=== PATIENT | male | born 1995 | race Caucasian/White ===

== ENCOUNTER 2022-02-08 15:10 | Emergency (ER) | payer OTHER, SELFPAY ==
[2022-02-08 15:11] VITALS: BP 151/80; PULSE 88; RESP 14; TEMP 36.3; O2SAT 98; BMI 29.9
--- NOTE | 2022-02-08 15:31 | EDS_ITS ---
HPI History of Present Illness Chief Complaint: Male Pain/Injury Informant: patient Pain Onset: Days (3) Context: Gradual Onset Timing: Waxes and wanes Worsened by: Movement, walking Relieved by: Rest Narrative Narrative: Patient presents with right testicular pain that has been getting worse over the past 3 days. Patient states it waxes and wanes. Patient states it is worse with walking. Patient states it is better with rest. Patient describes the pain as stabbing. Patient states the pain is localized to the right testicle. Patient denies any left testicular pain. Patient denies any inguinal pain. Patient admits to some nausea but denies any vomiting. Patient denies any diarrhea, melena, or hematochezia. Patient denies any dysuria or hematuria. PFSH PFSH Medical History no medical history no medical history Allergy/AdvReac Type Severity Reaction Status Date / Time Penicillins Allergy PT UNSURE Verified 02/08/22 15:13 OF REACTION Surgical History (Updated 02/08/22 @ 15:[address] Dk Hill DO) Hx of vasectomy Social History Smoking Status: Never smoker ROS ROS ED Constitutional Constitutional ED: Denies chills or fever(s) Eyes Eyes: Denies blurry vision or change in vision ENT ENT ED: Denies rhinorrhea or sore throat Cardiovascular Cardiovascular: Denies chest pain or palpitations Respiratory/Chest Respiratory/Chest: Denies cough or dyspnea Gastrointestinal Gastrointestinal: Reports nausea; Denies vomiting Genitourinary Genitourinary ED: Denies dysuria or hematuria Musculoskeletal Musculoskeletal: Denies back pain or neck pain Integumentary Denies abscess or rash Neurologic Neurologic: Denies headache(s) or weakness Allergic/Immunologic Allergic/Immunologic ED: Denies mouth swelling or urticaria EXAM Physical Exam Const Vital Signs: 02/08/22 15:11 Temperature 97.3 F L Temperature Source Temporal Pulse Rate 88 Respiratory Rate 14 Blood Pressure 151/80 H Blood Pressure Mean 103 Pulse Ox 98 Oxygen Delivery Method Room Air Positive well nourished and well developed General Appearance ED: well developed and NAD HEENT Reports moist mucous membranes Neck supple and no JVD Resp normal respiratory effort and clear to auscultation bilaterally Cardio regular rate and regular rhythm GI non-tender and non-distended Auscultation: normoactive bowel sounds Palpation: soft Penis: normal penis Scrotum: testes descended bilaterally and cremasteric reflex present; Negative for scrotal swelling Testes: testicular lie normal and testicular tenderness right; Negative for blue dot sign Extremity normal to inspection Neuro oriented x3, CN's II-XII intact bilaterally, moves all extremities, no focal motor deficits and no sensory deficits noted Sensorium / Orientation: alert Psych mental status grossly normal MDM MDM MDM Narrative Medical decision making narrative: Urinalysis does not show any evidence of urinary tract infection or hematuria. Ultrasound of the testicles was obtained. There is no evidence of torsion or epididymitis. Patient was advised of his findings. Patient was instructed to take Tylenol or ibuprofen as needed for pain. Patient was instructed to follow-up with his primary care physician in 5 to 7 days. Patient understood and was agreeable with the plan. All questions were answered. Lab Data Attestation: I reviewed the patient's lab results. Labs: Laboratory Results - last 24 hr 02/08/22 15:39 Urine Color Yellow Urine Clarity Clear Urine pH 6.5 Ur Specific [place] 1.010 Urine Protein Negative Urine Glucose (UA) Normal Urine Ketones Negative Urine Occult Blood Negative Urine Nitrite Negative Urine Bilirubin Negative Urine Urobilinogen Normal Ur Leukocyte Esterase Negative Urine RBC 0 SEEN Urine WBC 0 SEEN Ur Squamous Epith Cells 0 SEEN Urine Bacteria 0 SEEN Urine Mucus 0 SEEN Radiography Diagnostic Testing: Clinical Impression(s) from Imaging Studies Testicular Ultrasound 02/08/22 15:37 IMPRESSION: 1. Normal-appearing testicles without evidence for orchitis or torsion. 2. No testicular cystic or solid mass lesions. 3. Normal epididymal head bilaterally. 4. Small bilateral varicoceles. 5. Small left hydrocele. Electronically Signed: Filipe Angel MD at 18:36 EDT , Discharge Plan Triage Chief Complaint: Male Pain/Injury ED Provider: Dk Hill Dx/Rx/DC Orders Clinical Impression: Right testicular pain Instructions: ED Testicular Pain, Unclear Cause Primary Care Provider: Brooks Benz Referrals: Brooks Benz DO [Primary Care Provider] - 3-5 Days Disposition Disposition: Home, Self Care
--- NOTE | 2022-02-08 15:37 | US_ITS ---
STUDY: SCROTUM/TESTICULAR ULTRASOUND EXAMINATION OF 1640 HOURS ON 02/08/2022 REASON FOR EXAM: 26-year-old male with right testicular pain for 3 days duration. TECHNIQUE: Ultrasound evaluation of the scrotum was performed with color Doppler and static bajwa-scale imaging. COMPARISON: None. FINDINGS: Right testicle measures 4.7 cm x 3.2 cm x 2.8 cm, and is homogeneous in appearance, and is without evidence of torsion. The right epididymal head measures 1.3 cm x 1.56 x 1.3 cm and has normal vascularity and is without a solid mass lesions. There is a small right varicocele above the testis. The left testicle measures a normal 4.5 cm x 3.1 cm x 2.4 cm and is homogeneous in appearance. There is no evidence of left distal follicular cystic or solid mass lesions. There is no evidence of left testicular torsion. There is a small left hydrocele and small left varicocele. The left epididymal head measures 1.0 cm x 1.6 cm x 1.3 cm and is normal, without cystic or solid mass lesions. US/Testicular with Arterial Flow IMPRESSION: 1. Normal-appearing testicles without evidence for orchitis or torsion. 2. No testicular cystic or solid mass lesions. 3. Normal epididymal head bilaterally. 4. Small bilateral varicoceles. 5. Small left hydrocele. Electronically Signed: Filipe Angel MD at 18:36 EDT ,
[2022-02-08 15:53] LABS: Bacteria 0 SEEN /hpf (None Seen); Mucous, Urine 0 SEEN /hpf (<or=2+); Red Blood Cells-Urine 0 SEEN /hpf (0-5); Squamous Epithelial Cells - UA 0 SEEN /hpf (0-5); White Blood Cells 0 SEEN /hpf (0-5)
[2022-02-08 15:55] LABS: Color, Urine Yellow (Yellow); Glucose, Dipstick Normal (Normal); Ketone-Dipstick Negative (Negative); Leukocyte Esterase-Dipstick Negative /ul (Negative); Nitrite-Dipstick Negative (Negative); Occult Blood-Urine Negative /ul (Negative); Protein-Dipstick Negative (Negative); Urine Bilirubin Dipstick Negative (Negative); Urine Clarity Clear (Clear); Urine Urobilinogen Normal (Normal); Urine pH 6.5 (5.0 - 8.0)
== END 2022-02-08 19:29 | disposition home or self-care (01) ==
PROVIDERS: Emergency Provider Emergency Medicine; PCP Family Medicine; Visit Provider Emergency Medicine
DX: N50.811 Right testicular pain (principal); R11.0 Nausea
CPT/HCPCS: 76870; 81001; 93976; 99282